=== PATIENT | male | born 1935 | race Caucasian/White ===

== ENCOUNTER 2019-03-08 06:36 | Day surgery (SDC) | payer MEDICARE ==
[~2019-03-08 06:36] MED LIST: Acetaminophen TAB* 325 MG PO PRN; Buffered Lidocaine 1% SYRIN* 1 ML/SYRINGE INTRADERM ONE; Dexamethasone TAB* 4 MG ONE; Dexamethasone TAB* 4 MG PO ONE; DiMENhydriNATE IV* 50 MG/ML VIAL IV PUSH PRN; Famotidine IV* 10 MG/ML 2 ML (20 mg) IV ONE; Famotidine IV* 10 MG/ML 2 ML (20 mg) ONE; Lactated Ringers 1000 ML Bag* 1,000 ML IV SCH; Naloxone* 0.4 MG/ML 1 ML VIAL IV PRN; Ondansetron ODT TAB* 4 MG ONE; Ondansetron ODT TAB* 4 MG PO ONE; PROCHLORPERAZINE INJ 5 MG/ML 2 ML VIAL IV PRN; fentaNYL* 50 MCG/ML 2 ML VIAL (100 MCG VIAL) IV PRN; oxyCODONE TAB* 5 MG TAB PO PRN
[2019-03-08] MEDS ORDERED: Midazolam* 1 MG/ML 2 ML VIAL (2 MG) ONE (07:24)
[2019-03-08] MEDS ORDERED: KETAMINE HCL* 50 MG/ML 10 ML VIAL ONE (07:24)
[2019-03-08] MEDS ORDERED: fentaNYL* 50 MCG/ML 2 ML VIAL (100 MCG VIAL) ONE (07:24)
[2019-03-08] MEDS ORDERED: Bupivacaine 0.25% SDV* 30 ML ONE (07:33)
[2019-03-08] MEDS ORDERED: Ketorolac INJ* 30 MG/ML 1 ML VIAL ONE (07:51)
[2019-03-08] MEDS ORDERED: Propofol* 10 MG/ML 20 ML BTL ONE (07:51)
[2019-03-08] MEDS ORDERED: Lidocaine 2% PF * 5 ML VIAL ONE (07:51)
[2019-03-08] MEDS ORDERED: Metoprolol Tartrate IV* 1 MG/ML 5 ML VIAL ONE (07:51)
[2019-03-08] MEDS ORDERED: Phenylephrine 40 MCG/ML SYRINGE ONE (08:10)
[2019-03-08 10:34] VITALS: BP 144/85
--- NOTE | 2019-03-08 12:27 | OP ---
DATE OF OPERATION: 03/08/19 - [facility] DATE OF : 37 SURGEON: Sebastian Yarbrough MD. ASSOCIATE DATA SCIENTIST: RASHARD Zelaya. ANESTHESIOLOGIST: Dr. Moffett. ANESTHESIA: General. PRE-OP DIAGNOSES: 1. Right trigger thumb. 2. Right carpal tunnel syndrome. POST-OP DIAGNOSES: 1. Right trigger thumb. 2. Right carpal tunnel syndrome. OPERATIVE PROCEDURE: 1. Right endoscopic carpal tunnel release. 2. Right trigger thumb release. DESCRIPTION OF PROCEDURE: Mr. Forman was seen in the preoperative holding area. The correct site, side, and procedures were identified. We came back to the operating room. The arm was prepped and draped in the usual fashion and a time- out was performed. The arm was exsanguinated with the Esmarch and the tourniquet inflated. I went ahead and made a 1 cm transverse incision just ulnar to the palmaris longus tendon. Dissection was carried down, I bluntly spread apart the distal antebrachial fashion. A two-prong skin hook was placed underneath this. The carpal tunnel was then dilated open and then the MicroAire endoscopic carpal tunnel system was introduced. When I had it in the appropriate location, I elevated the blade. As I pulled my hand back, the transverse carpal ligament was released along its ulnar margin. Once I had completed the release, I placed a Marcia retractor and then confirmed the release distally. Everything was looking very good. The distal antebrachial fascia was then released proximally. The wound was irrigated out and closed with 4-0 Prolene suture. I then made a 1 cm transverse incision in the right thumb MP joint flexion crease. Dissection was carried down. Full-thickness flaps were raised off the tendon sheath. The 15 blade was used to incise the A1 kyler. Release was completed distally with tenotomy scissors. I released the fascia proximally over the tendons. I then flexed and extended the thumb multiple times. There was no triggering. The wound was irrigated out and closed with 4-0 nylon suture. Soft dressings were applied, and he was taken to the recovery room in stable condition. [id number]/CPS #: [id number] [facility]
== END 2019-03-08 10:15 | disposition home or self-care (01) ==
LOC: OREAST 06:36
PROVIDERS: ATTEND Orthopaedic Surgery Hand Surgery
DX: G56.01 Carpal tunnel syndrome, right upper limb (principal); M65.311 Trigger thumb, right thumb; I10 Essential (primary) hypertension; E78.5 Hyperlipidemia, unspecified; I48.91 Unspecified atrial fibrillation; M19.90 Unspecified osteoarthritis, unspecified site
CPT/HCPCS: A9270-GY; J1885; J2250; J2704; J3010; J3490; J8540

== ENCOUNTER 2019-04-20 16:11 | Emergency (ER) | payer MEDICARE ==
--- OUTSIDE RECORDS SUMMARY | 2019-04-20 16:19 | XMS REPORT | Continuity of Care Document ---
:1935 External Reference #:[id number] Author Name Jolanta Henderson NP Address [address] [place] [address] Care Team Providers Name Role Phone Feliciano Arnold DO Care Team Information Polish Compounder [phone] Problems Active Problems Provider Date Chronic sinusitis Jolanta Henderson NP Onset: 09/13/2018 Social History Type Date Description Comments Sex Unknown Tobacco Use Start: Unknown Never Smoked Cigarettes ETOH Use Quit Using Alcohol. Recreational Drug Use Never Used Drugs Allergies, Adverse Reactions, Alerts Description No Known Drug Allergies Medications Active Medications SIG Qnty Indications Ordering Provider Date Atenolol-Chlorthalido 1 by mouth every Unknown ne day 50-25mg Tablets Amlodipine Besylate 1 by mouth every Unknown 5mg day Tablets Omeprazole 1 by mouth every Unknown 20mg day Capsules DR Simvastatin 1 by mouth every Unknown 10mg day Tablets Potassium Chloride Unknown 20Meq Packet Warfarin Sodium by mouth every Unknown 3mg day, or as Tablets directed Timolol Maleate Unknown 0.5% Solution Pilocarpine HCL Unknown 2% Solution Travoprost Unknown 0.004% Solution Vitamin D3 Super Daily Unknown Strength 2000Unit Capsules Immunizations Description No Information Available Vital Signs Date Vital Result Comment 02/20/2019 10:22am Weight 161.00 lb Height 66 inches 5'6" BMI (Body Mass Index) 26.0 kg/m2 BP Systolic 143 mmHg BP Diastolic 76 mmHg Heart Rate 83 /min O2 % BldC Oximetry 98 % Body Temperature 97.5 F Overgaard Score 7 Pain Level 0 09/13/2018 11:35am Weight 157.00 lb Height 66 inches 5'6" BMI (Body Mass Index) 25.3 kg/m2 BP Systolic 114 mmHg BP Diastolic 56 mmHg Heart Rate 80 /min O2 % BldC Oximetry 97 % Body Temperature 98.1 F Pain Level 0 Results Description No Information Available Procedures Description No Information Available Medical Devices Description No Information Available Encounters Type Date Location Provider Dx Diagnosis Office Visit 02/20/2019 Main Office Jolanta Henderson, G47.33 Obstructive sleep 10:15a GENERAL MEDICAL PRACTITIONER apnea (adult) (pediatric) 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 Office Visit 09/13/2018 11:15a Main Office Jolanta Madden J32.9 Chronic sinusitis, KATLYN Henderson unspecified 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
--- OUTSIDE RECORDS SUMMARY | 2019-04-20 16:19 | XMS REPORT | Continuity of Care Document ---
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 [phone] Disease Problems Active Problems Provider Date Gastroesophageal reflux disease Mahesh Arnold DO Onset: 06/11/2013 Mixed hyperlipidemia Mahesh Arnold DO Onset: 06/11/2013 Diverticular disease of colon Anthony De Paz MD Onset: 12/22/2004 Benign essential hypertension Anthony De Paz MD Onset: 06/30/2004 Chronic angle-closure glaucoma Anthony De Paz MD Onset: 06/30/2004 Anal pain Anthony De Paz MD Onset: 06/30/2004 Kidney stone Anthony De Paz MD Onset: 06/30/2004 Irritable bowel syndrome Anthony De Paz MD Onset: 06/30/2004 Atrial fibrillation Mahesh Arnold DO Onset: 10/01/2016 Social History Type Date Description Comments Sex Unknown Tobacco Use Start: Unknown Never Smoked Cigarettes Tobacco Use Start: Unknown Patient has never smoked Smoking Status Reviewed: 10/18/18 Patient has never smoked Allergies, Adverse Reactions, Alerts Active Allergies Reaction Severity Comments Date Zestril 06/03/2014 Medications Active Medications SIG Qnty Indications Ordering Provider Date Omeprazole 1 po qd 60tabs Anthony De Paz MD 01/19/[address] Pilocarpine HCL Unknown 7.5mg Tablets Amlodipine Besylate 1 po qd 30tabs Unknown 5mg Tablets Simvastatin 1/2 po qhs Unknown 20mg Tablets Atenolol-Chlorthalidon 1 by mouth Unknown e every day 50-25mg Tablets Klor-Con M20 2 by mouth tid Unknown 20Meq Tablets ER Timolol Maleate 1 drop both Unknown 0.5% eyes twice a Solution day Vitamin D3 1 by mouth Unknown 2000Unit every day Capsules Travoprost Unknown 0.004% Solution Magnesium Oxide 1 by mouth Unknown 400mg every day Tablets Warfarin Sodium 1 by mouth Unknown 3mg every day Tablets History Medications Wrist wear nightly 1units Arnold, 10/18/2018 - Splint/Cock-Up/LEFT/Canvas/Large Mahesh, DO 11/17/2018 Misc Wrist wear nightly 1units Arnold, 10/18/2018 - Splint/Cock-Up/RIGHT/Canvas/Large Mahesh, DO 11/17/2018 [facility] Immunizations CPT Code Status Date Vaccine Reaction Lot # [id number] Given 11/07/2018 Influenza Vac, Quadrivalent, Split, 0.5mL Dosage, Im Use 39681 Given 11/04/2017 Pneumococcal 23 Immunization Adult Or Immunosuppressed Patient 26746 Given 11/04/2017 Fluzone Highdose Age 65 And Over Preservative & Antibiotic Free 25308 Given 11/09/2016 Fluzone Highdose Age 65 And Over Given At Pharmacy Preservative & Antibiotic Free Q2038 Given 10/27/2015 Fluzone Trivalent Immunization Q2038 Given 11/06/2014 Fluzone Trivalent Immunization 73785 Given 11/06/2014 Prevnar 13 Pneumococal Conjugate Vaccine 21643 Given 10/29/2013 Fluzone Highdose Age 65 And Over Preservative & Antibiotic Free 61352 Given 10/13/2012 Afluria Or Fluvirin Flu Vac [facility] Intramuscular 52952 Given 03/24/2011 Zoster (Zostavax) 85532 Given 03/24/2011 Tetanus And Diptheria Toxoid 7 Years And Older Preserv Free 02504 Given 11/03/2009 Afluria Or Fluvirin Flu Vac Intramuscular 64979 Given 09/15/2003 Immunization Td 7 Yrs Or Older Vital Signs Date Vital Result Comment 04/10/2019 10:20am Weight 152.00 lb Heart Rate 62 /min BP Systolic 138 mmHg BP Diastolic 78 mmHg Respiratory Rate 17 /min Height 64 inches 5'4" BMI (Body Mass Index) 26.1 kg/m2 10/18/2018 9:45am Weight 160.00 lb Heart Rate 80 /min BP Systolic 128 mmHg BP Diastolic 70 mmHg Respiratory Rate 18 /min Height 64 inches 5'4" BMI (Body Mass Index) 27.5 kg/m2 Results Test Acquired Date Facility Test Result H/L Range Note CBS 03/26/2019 [facility] White Blood 7.8 K/uL Normal 3.4-10.5 1 W/Automated (315)- - Count Diff Red Blood Count 4.90 M/uL Normal 4.20-5.80 Hemoglobin 14.5 gm/dL Normal 12.8-17.0 Hematocrit 43.6 % Normal 38.0-48.0 Mean Cell Volume 89.0 fl Normal 80.0-96.0 Mean Corpuscular HGB 29.6 pg Normal 27.0-33.0 Mean Corpuscular HGB Conc 33.3 g/dL Normal 31.7-36.0 Platelet Count 292 K/uL Normal 155-360 Red Cell Distri Width SD 42.0 fl Normal 36-51 Red Cell Distri Width %CV 12.9 % Normal 11.6-15.8 Mean Platelet Volume 10.6 fl Normal 6.6-10.6 Neut% 60.8 % Normal 33.0-73.0 Lymph % 26.1 % Normal 20.0-42.0 [place] % 9.2 % Normal 0.0-10.0 Eo% 3.0 % Normal 0.0-6.6 Bas% 0.5 % Normal 0.0-1.1 Immature Grans 0.4 % Normal 0.0-5.0 NRBC % 0.0 /100WBC < 10/ 100 WBC Neut# 4.72 K/uL Normal 1.8-7.0 Lymph # 2.02 K/uL Normal 1.0-4.0 [place] # 0.71 K/uL Normal 0.0-0.8 Eos # 0.23 K/uL Normal 0.0-0.5 Baso # 0.04 K/uL Normal 0.0-0.1 Immature Grans Absolute 0.03 K/uL NRBC # 0.00 K/uL Protime 03/26/2019 [facility] Protime 16.7 seconds High 12.0-14.4 (315)- - Inr 1.3 High 0.9-1.1 2 Laboratory test 03/26/2019 [facility] Act Partial 29.8 Normal 23.4-35.0 3 finding (315)- - Thrombo seconds Time Comprehensive 03/26/2019 [facility] Glucose 132 mg/dL High 74-106 Metabolic Panel (315)- - BUN 22 mg/dL High 7-18 Creatinine 1.5 mg/dL High 0.6-1.3 Glom Filtration Rate, Estimate 48 mL/min >60 If 58 mL/min >60 4 BUN/Creat 14.6 ratio Sodium 136 mmol/L Normal 136-145 Potassium 3.8 mmol/L Normal 3.5-5.1 Chloride 103 mmol/L Normal 98-107 Carbon Dioxide 28 mmol/L Normal 21-32 Anion Gap 5 mEq/L Low 8-16 Calcium 8.9 mg/dL Normal 8.5-10.1 Total Protein 7.4 g/dL Normal 6.4-8.2 Albumin 3.8 g/dL Normal 3.4-5.0 Globulin 3.6 g/dL Normal 1.9-4.3 Alb/Glob 1.1 ratio Bilirubin,Total 0.8 mg/dL Normal 0.2-1.0 Sgot/Ast 13 U/L Low 15-37 5 SGPT/Alt 36 U/L Normal 12-78 Alkaline Phosphatase 89 U/L Normal 45-117 Laboratory test finding 03/26/2019 [facility] CK 34 U/L Low 39-308 (315)- - Troponin-I < 0.015 ng/mL 6 1 VISION PROBLEMS 2 THERAPEUTIC INR RANGE: 2.0 - 3.0 DVT, Pulmonary embolus, prophylaxis against venous thrombosis or systemic embolization in high risk patients. 2.5 - 3.5 Mechanical heart valves 3 Is patient on anticoagulants? Coumadin 4 Note: Persistent reduction for 3 months or more in an eGFR <60 mL/min/1.73 m2 defines CKD. Patients with eGFR values >/=60 mL/min/1.73 m2 may also have CKD if evidence of persistent proteinuria is present. The original MDRD equation for estimated GFR is not valid for patients less than 18 years of age. Additional information may be found at www.kdoqi.org. 5 Values below the stated reference ranges of AST and ALT can be seen in normal populations. Clinical correlation is suggested. 6 0.0 - 0.045 ng/mL: Normal 0.046 - 0.5 ng/mL: Suggestive 0.6 - 1.5 ng/mL: Consistent Procedures Date Code Description Status 08/04/2004 46078366 Colonoscopy Completed Medical Devices Description No Information Available Encounters Type Date Location Provider Dx Diagnosis Office Visit 10/18/2018 [facility] Mahesh Arnold DO Z00.00 Encntr for general 9:45a adult medical exam w/o abnormal findings I10 Essential (primary) hypertension I48.91 Unspecified atrial fibrillation R73.01 Impaired fasting glucose E83.42 Hypomagnesemia 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, unspecified eye K21.9 Gastro-esophageal reflux disease without esophagitis 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, unspecified hand N40.1 Benign prostatic hyperplasia with lower urinary tract symp G25.0 Essential tremor N20.0 Calculus of kidney Z13.31 Encounter for screening for depression 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.2 Mixed hyperlipidemia R19.7 Diarrhea, unspecified E66.3 Overweight 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 Unspecified disturbances of skin sensation Z68.27 Body mass index (BMI) 27.0-27.9, adult Assessments Date Code Description Provider 04/10/2019 I63.9 Cerebral infarction, unspecified Mahesh Arnold DO 04/10/2019 I48.91 Unspecified atrial fibrillation Mahesh Arnold DO 04/10/2019 G56.03 Carpal tunnel syndrome, bilateral upper limbs Mahesh Arnold DO 04/10/2019 I10 Essential (primary) hypertension Mahesh Arnold DO 04/10/2019 E78.2 Mixed hyperlipidemia Mahesh Arnold DO 04/10/2019 Z68.26 Body mass index (BMI) 26.0-26.9, adult Mahesh Arnold DO 10/18/2018 Z00.00 Encounter for general adult medical examination Mahesh Arnold DO without abnormal findings 10/18/2018 I10 Essential (primary) hypertension Mahesh Arnold DO 10/18/2018 I48.91 Unspecified atrial fibrillation Mahesh Arnold DO 10/18/2018 R73.01 Impaired fasting glucose Mahesh Arnold DO 10/18/2018 E83.42 Hypomagnesemia Mahesh Arnold 10/18/2018 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, unspecified eye Mahesh ArnoldDO 10/18/2018 K21.9 Gastro-esophageal reflux disease without Mahesh Arnold DO esophagitis 10/18/2018 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, unspecified hand Mahesh Arnold 10/18/2018 N40.1 Benign prostatic hyperplasia with lower urinary Arnold MaheshDO tract symptoms 10/18/2018 G25.0 Essential tremor Mahesh ArnoldDO 10/18/2018 N20.0 Calculus of kidney Mahesh ArnoldDO 10/18/2018 Z13.31 Encounter for screening for depression Mahesh ArnoldDO 10/18/2018 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 Mahesh ArnoldDO 10/18/2018 E78.2 Mixed hyperlipidemia Mahesh ArnoldDO 10/18/2018 R19.7 Diarrhea, unspecified Mahesh ArnoldDO 10/18/2018 E66.3 Overweight Mahesh ArnoldDO 10/18/2018 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 Reviewed the risks. I recommended the patient to continue taking Warfarin as directed. I recommended the patient to continue taking the hypertension and hyperlipidemia medications. We will continue to monitor.Follow up:Follow up with me as scheduled.I48.91 Unspecified atrial fibrillationComments:Reviewed the condition in detail with the patient. Reviewed the risks. I recommended the patient to continue taking Warfarin as directed. I recommended the patient to continue taking the hypertension and hyperlipidemia medications. We will continue to monitor.G56.03 Carpal tunnel syndrome, bilateral upper limbsComments:Pt had a carpal tunnel release of the right wrist with Dr. Yarbrough. They recommended him to stop theCoumadin for couple of days before the left wrist carpal tunnel release, but he was hospitalized andwas diagnosed with embolic stroke. Pt does not wish to have a left carpal tunnel release at the present time. Will follow up with Dr. Yarbrough as needed. Will continue to monitor.I10 Essential (primary) dccloloiyfggF50.2 Mixed kobllkfrwgyixfL16.26 Body mass index (BMI) 26.0-26.9, adultComments:The patient's BMI is at 26.1. We will continue to monitor weight and BMI periodically. Functional Status Description No Information Available Mental Status Description No Information Available Referrals Refer to Reason for Referral Status Appt Date Sebastian Yarbrough DR Carpal tunnel- [place] office Faxed all Closed 2018 necessary paperwork for the to review and schedule the pt. NORBERTO 12/19 Brady from office will send notes -01/10/19 sadiq [facility] @ [address] [address] [phone]
--- OUTSIDE RECORDS SUMMARY | 2019-04-20 16:19 | XMS REPORT | Continuity of Care Document ---
:1935 External Reference #:[id number] Author Name Mahesh Arnold DO Address [address] [place] [id number] Care Team Providers Name Role Phone Casper Lin MD - Cardiovascular Care Team Information Teamcenter Solution Architect [phone] Disease Problems Active Problems Provider Date Gastroesophageal [...] Arnold, 10/18/2018 - Splint/Cock-Up/RIGHT/Canvas/Large Mahesh, DO 11/17/2018 [facility] Immunizations CPT Code Status Date Vaccine Reaction Lot # 34081 Given 11/07/2018 Influenza Vac, Quadrivalent, Split, 0.5mL Dosage, Im Use 20639 Given 11/04/2017 Pneumococcal 23 Immunization Adult Or Immunosuppressed Patient 23067 Given 11/04/2017 Fluzone Highdose Age 65 And Over Preservative & Antibiotic Free 62577 Given 11/09/2016 Fluzone Highdose Age 65 And Over Given At Pharmacy Preservative & Antibiotic Free Q2038 Given 10/27/2015 Fluzone Trivalent Immunization Q2038 Given 11/06/2014 Fluzone Trivalent Immunization 39788 Given 11/06/2014 Prevnar 13 Pneumococal Conjugate Vaccine 30190 Given 10/29/2013 Fluzone Highdose Age 65 And Over Preservative & Antibiotic Free 36290 Given 10/13/2012 Afluria Or Fluvirin Flu Vac [facility] Intramuscular 06948 Given 03/24/2011 Zoster (Zostavax) 22852 Given 03/24/2011 Tetanus And Diptheria Toxoid 7 Years And Older Preserv Free 31055 Given 11/03/2009 Afluria Or Fluvirin Flu Vac Intramuscular 18421 Given 09/15/2003 Immunization Td 7 Yrs Or [...] Test Result H/L Range Note CBS 03/26/2019 [facility] White Blood 7.8 K/uL Normal [...] 33.0-73.0 Lymph % 26.1 % Normal 20.0-42.0 [place] % 9.2 % Normal 0.0-10.0 Eo% 3.0 % Normal 0.0-6.6 Bas% 0.5 % Normal 0.0-1.1 Immature Grans 0.4 % Normal 0.0-5.0 NRBC % 0.0 /100WBC < 10/ 100 WBC Neut# 4.72 K/uL Normal 1.8-7.0 Lymph # 2.02 K/uL Normal 1.0-4.0 [place] # 0.71 K/uL Normal 0.0-0.8 Eos # 0.23 K/uL Normal 0.0-0.5 Baso # 0.04 K/uL Normal 0.0-0.1 Immature Grans Absolute 0.03 K/uL NRBC # 0.00 K/uL Protime 03/26/2019 [facility] Protime 16.7 seconds High 12.0-14.4 (315)- - Inr 1.3 High 0.9-1.1 2 Laboratory test 03/26/2019 [facility] Act Partial 29.8 Normal 23.4-35.0 3 finding (315)- - Thrombo seconds Time Comprehensive 03/26/2019 [facility] Glucose 132 mg/dL High 74-106 Metabolic [...] U/L Normal 45-117 Laboratory test finding 03/26/2019 [facility] CK 34 U/L Low 39-308 (315)- [...] Consistent Procedures Date Code Description Status 08/04/2004 [id number] Colonoscopy Completed Medical Devices Description No Information Available Encounters Type Date Location Provider Dx Diagnosis Office Visit 10/18/2018 [facility] Mahesh Arnold DO Z00.00 Encntr for [...] Appointment(s):10/19/2019 8:00 am - Schedule, Laboratory at [facility]2019 10:30 am - Mahesh Arnold DO at [facility]04/10/2019 - Mahesh Arnold, DOI63.9 Cerebral infarction, [...] needed. Will continue to monitor.I10 Essential (primary) uooohtstwarwQ81.2 Mixed chjyapkosrhpteG33.26 Body mass index (BMI) 26.0-26.9, adultComments:The patient's BMI is at 26.1. We will continue to monitor weight and BMI periodically. Functional Status Description No Information Available Mental Status Description No Information Available Referrals Refer to Reason for Referral Status Appt Date Sebastian Yarbrough DR Carpal tunnel- [place] office Faxed all Closed 2018 necessary paperwork for the to review and schedule the pt. NORBERTO 12/19 Brady from office will send notes -01/10/19 sadiq [facility] @ [address] [address] [phone]
--- OUTSIDE RECORDS SUMMARY | 2019-04-20 16:19 | XMS REPORT | Continuity of Care Document ---
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 Problems Active Problems Provider Date Atrial fibrillation Onset: 10/01/2016 Benign essential hypertension Onset: 06/30/2004 Chronic angle-closure glaucoma Onset: 06/30/2004 Diverticular disease of colon Onset: 12/22/2004 Gastroesophageal reflux disease Onset: 06/11/2013 Irritable bowel syndrome Onset: 06/30/2004 Kidney stone Onset: 06/30/2004 Mixed hyperlipidemia Onset: 06/11/2013 Bilateral carpal tunnel syndrome Sebastian Yarbrough MD Onset: 12/29/2018 Snapping thumb syndrome Sebastian Yarbrough MD Onset: 12/29/2018 Social History Type Date Description Comments Sex Unknown Tobacco Use Start: Unknown Never Smoked Cigarettes Smoking Status Reviewed: 03/16/19 Never Smoked Cigarettes ETOH Use Denies alcohol use Tobacco Use Start: Unknown Patient has never smoked Exercise Type/Frequency Exercises regularly Allergies, Adverse Reactions, Alerts Active Allergies Reaction Severity Comments Date Lisinopril 12/28/2018 Medications Active Medications SIG Qnty Indications Ordering Date Provider Tramadol HCL 1-2 tablets by mouth 20tabs Sebastian Yarbrough 03/08/2019 50mg every 6 hours as MD Tablets needed pain Omeprazole 1 tab by mouth once Unknown 20mg daily occasionally Tablets DR an additional one in the evening Pilocarpine HCL 1 drop both eyes Unknown 2% four times a day Solution Amlodipine Besylate 1 po qd 30tabs Unknown 5mg Tablets Simvastatin 1/2 po qhs Unknown 20mg Tablets Atenolol-Chlorthali 1 by mouth every day Unknown done 50-25mg Tablets Klor-Con M20 2 by mouth tid Unknown 20Meq Tablets ER Timolol Maleate 1 drop both eyes Unknown twice a day 0.5% Solution Vitamin D3 1 by mouth every day Unknown 50mcg (2000 Ut) Capsules Travoprost 1 drop in each eye Unknown 0.004% daily Solution Magnesium 1 by mouth every day Unknown 250mg Tablets Warfarin Sodium 1 by mouth every day Unknown 3mg as directed Tablets Immunizations Description No Information Available Vital Signs Date Vital Result Comment 03/16/2019 1:02pm Height 64 inches 5'4" Weight 162.00 lb Heart Rate 64 /min BP Systolic Sitting 142 mmHg BP Diastolic Sitting 86 mmHg Body Temperature 98.8 F Pain Level 2 BMI (Body Mass Index) 27.8 kg/m2 02/16/2019 1:34pm Height 64 inches 5'4" Weight 162.25 lb Heart Rate 72 /min BP Systolic Sitting 136 mmHg BP Diastolic Sitting 76 mmHg Respiratory Rate 16 /min Pain Level 0 O2 % BldC Oximetry 98 % BMI (Body Mass Index) 27.8 kg/m2 Results Test Acquired Date Facility Test Result H/L Range Note Laboratory test 03/08/2019 [facility] Point [facility] Care 124 mg/dL High 70-100 [address] Glucose [place], [place] [id number] [phone] Laboratory test 03/08/2019 [facility] Point of Care 132 mg/dL High 70-[address] Glucose [place], [place] [id number] [phone] Piano Builder: [email or web address] Piano Builder: [id number] Procedures Date Code Description Status 03/08/2019 42130 Endoscopy Wrist Surg W/Release Of Transverse Carpal Completed Ligament 03/08/2019 14992 Endoscopy Wrist Surg W/Release Of Transverse Carpal Completed Ligament 03/08/2019 12787 Trigger Finger Release Incision / Tendon Sheath Incision Completed 03/08/2019 67749 Trigger Finger Release Incision / Tendon Sheath Incision Completed Medical Devices Description No Information Available Encounters Type Date Location Provider Dx Diagnosis Office Visit 12/29/2018 [facility] Sebastian Yarbrough, G56.03 Carpal tunnel 1:30p at [place] MD syndrome, bilateral upper limbs M65.311 Trigger thumb, right thumb Assessments Date Code Description Provider 03/16/2019 G56.03 Carpal tunnel syndrome, bilateral upper limbs Sebastian Yarbrough MD 03/16/2019 M65.311 Trigger thumb, right thumb Sebastian Yarbrough MD 03/08/2019 G56.01 Carpal tunnel syndrome, right upper limb Riaz Hargrove, PA 03/08/2019 G56.01 Carpal tunnel syndrome, right upper limb Sebastian Yarbrough MD 03/08/2019 M65.311 Trigger thumb, right thumb Riaz Hargrove, PA 03/08/2019 M65.311 Trigger thumb, right thumb Sebastian Yarbrough MD 02/16/2019 G56.03 Carpal tunnel syndrome, bilateral upper limbs Sebastian Yarbrough MD 02/16/2019 M65.311 Trigger thumb, right thumb Sebastian Yarbrough MD 12/29/2018 G56.03 Carpal tunnel syndrome, bilateral upper limbs Sebastian Yarbrough MD 12/29/2018 M65.311 Trigger thumb, right thumb Sebastian Yarbrough MD Plan of Treatment Future Appointment(s):04/10/2019 1:00 pm - Sebastian Yarbrough MD at [facility] at [id number]/29/2019 7:45 am - Sebastian Yarbrough MD at [facility] at [id number]/16/2019 - Sebastian Yarbrough MDG56.03 Carpal tunnel syndrome, bilateral upper limbsFollow up:Follow up: 10-14 days [id number] Trigger thumb, right thumb Functional Status Description No Information Available Mental Status Description No Information Available Referrals Description No Information Available
[2019-04-20 16:21] VITALS: BP 136/83
--- NOTE | 2019-04-20 16:57 | UC ---
General HPI - HPI Summary HPI Summary: 83 yo man with hx of CVA in March when he was off coumadin in preparation for carpal tunnel release. Presentation was vision loss: "I could not see print, " He did not have diplopia, was not aware of peripheral visual loss. He does not know the location of his stroke. Over the past 3 days, his vision is "off"--he can see to read and to watch TV, but "something is off". He has no headache, no diplopia, no nausea and no limb weakness or dysarthria. He comes because his PMD could not see him. Wants to make sure "nothing gets worse". Last INR was 2 weeks ago, level was 2.1, no change made in his meds. This was his first choice post stroke. He saw Dr. Lopez 4 days ago for glaucoma assessment: all fine. - History of Current Complaint Chief Complaint: AURELIAEyrex Stated Complaint: BLURRED VISION Time Seen by Provider: 04/20/19 16:46 Hx Obtained From: Patient Onset/Duration: Gradual Onset, Lasting Days - 3--not worse, maybe a little better. Onset Severity: Mild Current Severity: Mild Pain Intensity: 0 Associated Signs & Symptoms: Positive: Anticoagulation Therapy. Negative: Confusion, Chest Pain, Dizziness, Decreased Oral Intake, Syncope, Trauma - Allergy/Home Medications Allergies/Adverse Reactions: Allergies Allergy/AdvReac Type Severity Reaction Status Date / Time No Known Allergies Allergy Verified 04/20/19 16:21 Home Medications: Home Medications Amlodipine Besylate [Norvasc-] 5 mg PO QAM 12/18/15 [History Confirmed 04/20/19] Atenolol/Chlorthalidone [Atenolol/Chlorthalidone 50-25 mg-] 1 tab PO QAM [History Confirmed 04/20/19] Omeprazole CAP (NF) [Prilosec CAP* 20 MG] 20 mg PO QAM 12/18/15 [History Confirmed 04/20/19] Potassium Chlor TAB* [Klor Con ER TAB*] 40 meq PO TID 12/18/15 [History Confirmed 04/20/19] Simvastatin TAB(NF) [Zocor(NF)] 10 mg PO DAILY 12/18/15 [History Confirmed 04/19] Timolol 0.5% OPTH.SHIRIN* [Timoptic 0.5% Opth*] 1 drop BOTH EYES BID 12/18/15 [ History Confirmed 04/20/19] Cholecalciferol (Vitamin D3) [Vitamin D-3] 2,000 unit PO QAM 03/02/19 [History Confirmed 04/20/19] Magnesium Oxide [Magnesium] 250 mg PO QAM 03/02/19 [History Confirmed 04/20/19] Philocarpine Hcl 2% 1 drop BOTH EYES QID 03/02/19 [History Confirmed 04/20/19] Travoprost 0.004% (NF) [Travatan Z (NF)] 1 drop BOTH EYES BEDTIME 03/02/19 [ History Confirmed 04/20/19] Warfarin TAB(*) [Coumadin TAB(*)] 3 mg PO SEE INSTRUCTIONS 03/02/19 [History Confirmed 04/20/19] Warfarin TAB(*) [Coumadin TAB(*)] 6 mg PO SEE INSTRUCTIONS 03/02/19 [History Confirmed 04/20/19] PMH/Surg Hx/FS Hx/Imm Hx Previously Healthy: Yes Cardiovascular History: Hypertension, Atrial Fibrillation, Other - hypokalemia GI/ History: Other - BPH Neurological History: CVA - Surgical History Surgical History: Yes Surgery Procedure, Year, and Place: Appendix, prostate, renal stone removed. bilat cataract surgery. left nostril polyp removed 05/2018. right wrist carpal tunnel 2019 - Family History Known Family History: Positive: Cardiac Disease - father of [place] age 86, Diabetes - mother of complications age 65 - Social History Occupation: Retired Alcohol Use: None Substance Use Type: None Smoking Status (MU): Never Smoked Tobacco Review of Systems All Other Systems Reviewed And Are Negative: Yes Constitutional: Positive: Negative Skin: Positive: Negative Eyes: Positive: Blurred Vision. Negative: Diplopia, Drainage, Eye Redness, Photophobia ENT: Positive: Negative Respiratory: Positive: Negative Cardiovascular: Positive: Other - in sinus. Negative: Palpitations, Chest Pain Gastrointestinal: Positive: Negative Genitourinary: Positive: Negative Motor: Positive: Negative Neurovascular: Positive: Negative Physical Exam Triage Information Reviewed: Yes Appearance: Well-Appearing, No Pain Distress, Thin, Other: - he is alert, fairly good historian. Vital Signs: Initial Vital Signs Temp 97.6 F 04/20/19 16:14 Pulse 84 04/20/19 16:14 Resp 18 04/20/19 16:14 BP 136/83 04/20/19 16:14 Pulse Ox 100 04/20/19 16:14 Eyes: Positive: Conjunctiva Clear, Other: - Small pupils. Normal eom, normal visual ramírez by confrontation. ENT: Positive: Pharynx normal Neck: Positive: Supple, Nontender, No Lymphadenopathy Respiratory: Positive: Lungs clear, Normal breath sounds, No respiratory distress Cardiovascular: Positive: RRR, No Murmur, Murmur:Sys:Grade _?_/ - soft at left sternal border Musculoskeletal Exam: Normal Neurological Exam: Other - No pronator drift. CNII-XII normal. Gait normal, mild stumble observed. romberg negative. Neurological: Positive: Alert, Muscle Tone Normal Psychological Exam: Normal Skin Exam: Normal Course/Dx - Course Course Of Treatment: Discussed possible metabolic and vascular causes, risk of subtherapeutic INR. He declines to go to the ER and he is fully aware that I cannot given him the reassurance he wants with regard to stroke risk. [facility], and to proceed directly to the ER if he has progressive symptoms. - Differential Dx - Multi-Symptom Differential Diagnoses: CVA, Other - metabolic disturbance, low INR - Diagnoses Provider Diagnosis: Vision blurring Discharge ED - Sign-Out/Discharge Documenting (check all that apply): Patient Departure All imaging exams completed and their final reports reviewed: No Studies - Discharge Plan Condition: Stable Disposition: HOME Patient Education Materials: A-fib (Atrial Fibrillation) (ED) Referrals: Mahesh Arnold DO [Primary Care Provider] - Additional Instructions: As we discussed, your recent stroke risk means that you are risk of another. You have no apparent findings that are new. I cannot tell you why your vision is off, but your exam is overall normal and your blood pressure and heart rate are in good ranges. I advise that you have a repeat INR and electrolytes done as soon as possible to ensure that you are in therapeutic range and that your electrolytes are normal. If your symptoms persist or worsen I urge you to call 911 and proceed straight to the emergency room. - Billing Disposition and Condition Condition: STABLE Disposition: Home
== END 2019-04-20 17:35 | disposition home or self-care (01) ==
LOC: UCCORT 16:11
DX: H53.8 Other visual disturbances (principal); I10 Essential (primary) hypertension; I48.91 Unspecified atrial fibrillation; Z86.73 Personal history of transient ischemic attack (TIA), and cerebral infarction without residual deficits; Z79.899 Other long term (current) drug therapy; Z79.01 Long term (current) use of anticoagulants
CPT/HCPCS: 99212; G0463